=== PATIENT | male | born 1995 | race Caucasian/White ===

== ENCOUNTER 2016-10-15 15:45 | Emergency (ER) | payer SELFPAY ==
[2016-10-15 16:42] VITALS: BMI 22.1
[2016-10-15] MEDS ORDERED: SODIUM CHLORIDE 0.9% 3 ML FLUSH FLUSH PRN (17:48)
[2016-10-15] MEDS ORDERED: HYDROmorphone 1 MG INJECTION IV ONE ×2 (17:48→19:07)
[2016-10-15] MEDS ORDERED: ONDANSETRON HCL 4 MG/2 ML VIAL IV ONE (17:48)
--- NOTE | 2016-10-15 17:52 | EDPRACDOC ---
- General Information Chief Complaint: Generalized Weakness Stated Complaint: GENERALIZED WEAKNESS/VOMITING Time Seen by Provider: 10/15/16 17:43 Information Source: Patient Mode Of Arrival: Car Home Medications: Home Medications No Home Medications 10/25/12 Ondansetron [Zofran Odt] 4 mg PO Q6H #20 tab.rapdis 10/15/16 Oxycodone Immediate Release [Oxycodone Immediate Release (OxyIR)] 5 mg PO Q6H PRN #10 tab 10/15/16 PEG-Electrolytes (Miralax) [Miralax] 17 gm PO DAILY 7 Days 10/15/16 Allergies/Adverse Reactions: Allergies Allergy/AdvReac Type Severity Reaction Status Date / Time acetaminophen [From Tylenol] Allergy Unknown Verified 10/15/16 16:43 cefaclor [From Ceclor] Allergy Unknown/See Verified 10/15/16 16:43 Comments codeine [Codeine] Allergy Unknown/See Verified 10/15/16 16:43 Comments - History of Present Illness Onset: FRIDAY HPI: PT STATES SINCE FRIDAY HE HAS BEEN HAVING RUQ RIGHT SIDE ABD PAIN WITH N/V STATES JUST DONT FEEL GOOD AT ALL. Pain Location: Reports: Epigastric, RUQ, RLQ, Flank Pain Context: Reports: Spontaneous Pain Severity: Moderate Pain Quality: Reports: Aching, Cramping, Sharp Pain Radiation: Reports: Back Modifying Factors: improves with: Position, Movement, Other (PRESSING ON ABDOMEN ) Associated Signs & Symptoms: Reports: Nausea, Vomiting Oral Intake: Decreased Urinary Output: Normal ED Past Medical History - History Reviewed Yes Nurses notes reviewed and agree except as marked Travel Outside of [place] in the Last 3 Months?: No No Past Medical History: Yes Patient has no past medical history - Patient Medical History Psychological History: Denies: Depression - Social Medical History ETOH: None Substance Abuse: None Lives With: Significant Other Lives In: Home EDM Review of Systems - Review of Systems ROS Negative Except as Marked: Yes All systems reviewed and were negative except as marked Constitutional: No Symptoms Reported. negative: Fever, Chills, Weakness, Fatigue, Loss of Appetite Eyes: No Symptoms Reported. negative: Redness, Blurred Vision, Double Vision, Discharge, Pain, Light Sensitive, Photophobia Ears: No Symptoms Reported. negative: Pain, Hearing Loss, Drainage, Ear Pulling Throat: No Symptoms Reported. negative: Pain, Swelling Nose: No Symptoms Reported. negative: Congestion, Bleeding, Discharge, Injection, Swelling, Deformity, Ecchymosis, Tender, Abrasion, Laceration Mouth: No Symptoms Reported. negative: Pain, Drooling Respiratory: No Symptoms Reported. negative: Cough, Brassy Cough, Barky Cough, Shortness of Breath, Wheezing, Hemoptysis Cardiovascular: No Symptoms Reported. negative: Chest Pain, Palpitations, Syncope, Edema, Orthopnea, PND, Skin Mottling, Cyanosis Gastrointestinal: Nausea, Pain, Vomiting. negative: Constipation, Diarrhea, Formula Intolerance, Melena Genitourinary: No Symptoms Reported. negative: Dysuria, Hematuria, Frequency, Discharge, Bleeding, Testicular Pain, Neurological: No Symptoms Reported. negative: Headache, Dizziness, Seizure, Numbness, Weakness, Speech Difficulty, Gait Difficulty Musculoskeletal: No Symptoms Reported. negative: Neck, Chestwall, Ribs, Back, Shoulder, Arm, Elbow, Forearm, Wrist, Hand, Pelvis, Hip, Femur, Knee, Leg, Ankle , Foot Integumentary: No Symptoms Reported. negative: Itching, Rash, Bruising, Wound Allergic/Immunologic: No Symptoms Reported. negative: Hives, Itching Hematologic: No Symptoms Reported. negative: Lymphadenopathy, Easy Bruising, Easy Bleeding Endocrine: No Symptoms Reported. negative: Weight Gain, Weight Loss Psychiatric: No Symptoms Reported. negative: Anxiety, Depression, Hallucinations, Insomnia, Suicidal - Physical Exam Constitutional: Alert (Awake, UNCOMFORTABLE) Oriented to: Time, Person, Place Last recorded Vital Signs: Last Vital Signs Temp 98.3 F 10/15/16 19:02 Pulse 66 10/15/16 19:02 Resp 18 10/15/16 19:02 BP 118/64 10/15/16 19:02 Pulse Ox 99 10/15/16 19:02 Oxygen Pulse Oxygen Saturation 99 O2 Device Room Air Oxygen Flow Rate Fraction of Inspired Oxygen ( FIO2) - HEENT Head: Normal ( normocephalic) Eye Exam: Normal (PERRL, EOMI, Sclera white) Oropharynx: Normal (Pharynx:Moist without exudate,Gums-no swelling) Tympanic Membrane: Normal ENT EAC: Normal TMJ: Normal Nose: No Symptoms Reported (septum midline) Neck: Normal (FROM, trachea at midline) - Respiratory/Cardiovascular Respiratory: Normal - CTA (BBS clear to auscultation without adventitious sounds ) Cardiovascular: Normal (RRR without murmur, gallop or rub) - GI Auscultation: Normal (NABS) Palpation: Normal (Soft,No rebound or guarding, non distended) Tenderness: Moderate, Guarding, RUQ, RLQ, Epigastric Ocasio's Sign: Negative - Bladder: Normal - Musculoskeletal Back: Normal (Non-Tender) Extremities: Normal (Normal tone, Pulses 2+ No cyanosis or edema, FROM) - Integumentary Skin: Normal, Warm, Dry Lymphatics: Normal (no adenopathy) - Neurologic Memory Impaired: Normal Motor Function: Normal (Normal tone, Pulses 2+ No cyanosis or edema, FROM) Cranial Nerve: Normal (CN II-X11 intact sensation, strength 5/5) Cerebellar: Normal Mood Description: Normal Perception: Normal - Differential Diagnosis Appendicitis, Cholecystitis, Cholelithiasis, Colic, Constipation, Pancreatitis, Urolithiasis, Ureterolithiasis - Results 10/15/16 17:09 10/15/16 17:09 WBC 10.1 xk/uL (3.8-10.8) 10/15/16 17:09 RBC 5.19 xM/uL (4.70-6.10) 10/15/16 17:09 Hgb 16.0 g/dL (14.0-18.0) 10/15/16 17:09 Hct 45.2 % (42-52) 10/15/16 17:09 MCV 87 fL (80-94) 10/15/16 17:09 MCH 30.8 pg (27-32) 10/15/16 17:09 MCHC 35.3 g/dl (33-36) 10/15/16 17:09 RDW 13.2 % (11.5-14.5) 10/15/16 17:09 Plt Count 255 xk/uL (130-400) 10/15/16 17:09 MPV 8.7 fL (7.4-10.4) 10/15/16 17:09 Neut % (Auto) 60.8 % (45-76) 10/15/16 17:09 Lymph % (Auto) 28.4 % (17-44) 10/15/16 17:09 Isabela % (Auto) 8.6 % (3-10) 10/15/16 17:09 Eos % (Auto) 1.1 % (0-5) 10/15/16 17:09 Baso % (Auto) 1.1 % (0-2) 10/15/16 17:09 Absolute Neuts (auto) 6.06 xk/uL (1.7-8.2) 10/15/16 17:09 Absolute Lymphs (auto) 2.83 xk/uL (0.65-4.75) 10/15/16 17:09 Sodium 142 mEq/L (137-146) 10/15/16 17:09 Potassium 3.6 mEq/L (3.5-5.1) 10/15/16 17:09 Chloride 101 mEq/L (98-107) 10/15/16 17:09 Carbon Dioxide 29 mMOL/L (22-33) 10/15/16 17:09 Anion Gap 16 mEq/L (8-16) 10/15/16 17:09 BUN 12 MG/DL (9-20) 10/15/16 17:09 Creatinine 0.80 MG/DL (0.66-1.25) 10/15/16 17:09 Estimated GFR (MDRD) > 60 mL/min (>=60) 10/15/16 17:09 Glucose 82 MG/DL (70-99) 10/15/16 17:09 Calculated Osmolality 272 MOs/Kg (270-290) 10/15/16 17:09 Calcium 9.3 MG/DL (8.4-10.2) 10/15/16 17:09 Total Bilirubin 0.7 MG/DL (0.2-1.3) 10/15/16 17:09 AST 26 IU/L (17-59) 10/15/16 17:09 ALT 38 IU/L (21-72) 10/15/16 17:09 Alkaline Phosphatase 54 IU/L (38-126) 10/15/16 17:09 Total Protein 7.7 G/DL (6.3-8.2) 10/15/16 17:09 Albumin 4.7 G/DL (3.5-5.0) 10/15/16 17:09 Lipase 59 U/L (23-300) 10/15/16 17:09 Urine Color Yellow 10/15/16 18:35 Urine Clarity Clear 10/15/16 18:35 Urine pH 5.0 (5.0-8.0) 10/15/16 18:35 Ur Specific Stryker 1.020 (1.003-1.035) 10/15/16 18:35 Urine Protein Neg (NEG/TRACE) 10/15/16 18:35 Urine Glucose (UA) Neg (NEGATIVE) 10/15/16 18:35 Urine Ketones Neg (NEGATIVE) 10/15/16 18:35 Urine Occult Blood Neg (NEG/TRACE) 10/15/16 18:35 Urine Nitrite Neg (NEGATIVE) 10/15/16 18:35 Urine Bilirubin Neg (NEGATIVE) 10/15/16 18:35 Urine Urobilinogen <2.0 MG/DL (0-1) 10/15/16 18:35 Ur Leukocyte Esterase Neg (NEGATIVE) 10/15/16 18:35 Urine RBC 0-2 (0-2) 10/15/16 18:35 Urine WBC 0-2 (0-2) 10/15/16 18:35 Urine Bacteria Few (NEG/FEW) 10/15/16 18:35 Urine Mucus Mod (NEG/OCC) H 10/15/16 18:35 Urine Opiates Screen Neg (NEGATIVE) 10/15/16 18:35 Ur Oxycodone Screen Neg (NEGATIVE) 10/15/16 18:35 Urine Methadone Screen *positive* (NEGATIVE) H 10/15/16 18:35 Ur Barbiturates Screen Neg (NEGATIVE) 10/15/16 18:35 Ur Tricyclics Screen Neg (NEGATIVE) 10/15/16 18:35 Ur Phencyclidine Scrn Neg (NEGATIVE) 10/15/16 18:35 Ur Amphetamines Screen Neg (NEGATIVE) 10/15/16 18:35 U Methamphetamines Scrn Neg (NEGATIVE) 10/15/16 18:35 Urine MDMA Screen Neg (NEGATIVE) 10/15/16 18:35 U Benzodiazepines Scrn Neg (NEGATIVE) 10/15/16 18:35 Urine Cocaine Screen Neg (NEGATIVE) 10/15/16 18:35 Ur THC Screen *positive* (NEGATIVE) H 10/15/16 18:35 Lab Results 10/15/16 10/15/16 10/15/16 18:35 18:35 17:09 WBC 10.1 RBC 5.19 Hgb 16.0 Hct 45.2 MCV 87 MCH 30.8 MCHC 35.3 RDW 13.2 Plt Count 255 MPV 8.7 Neut % (Auto) 60.8 Lymph % (Auto) 28.4 Isabela % (Auto) 8.6 Eos % (Auto) 1.1 Baso % (Auto) 1.1 Absolute Neuts (auto) 6.06 Absolute Lymphs (auto) 2.83 Sodium Potassium Chloride Carbon Dioxide Anion Gap BUN Creatinine Estimated GFR (MDRD) Glucose Calculated Osmolality Calcium Total Bilirubin AST ALT Alkaline Phosphatase Total Protein Albumin Lipase Urine Color Yellow Urine Clarity Clear Urine pH 5.0 Ur Specific Stryker 1.020 Urine Protein Neg Urine Glucose (UA) Neg Urine Ketones Neg Urine Occult Blood Neg Urine Nitrite Neg Urine Bilirubin Neg Urine Urobilinogen <2.0 Ur Leukocyte Esterase Neg Urine RBC 0-2 Urine WBC 0-2 Urine Bacteria Few Urine Mucus Mod H Urine Opiates Screen Neg Ur Oxycodone Screen Neg Urine Methadone Screen *positive* H Ur Barbiturates Screen Neg Ur Tricyclics Screen Neg Ur Phencyclidine Scrn Neg Ur Amphetamines Screen Neg U Methamphetamines Scrn Neg Urine MDMA Screen Neg U Benzodiazepines Scrn Neg Urine Cocaine Screen Neg Ur THC Screen *positive* H 10/15/16 17:09 WBC RBC Hgb Hct MCV MCH MCHC RDW Plt Count MPV Neut % (Auto) Lymph % (Auto) Isabela % (Auto) Eos % (Auto) Baso % (Auto) Absolute Neuts (auto) Absolute Lymphs (auto) Sodium 142 Potassium 3.6 Chloride 101 Carbon Dioxide 29 Anion Gap 16 BUN 12 Creatinine 0.80 Estimated GFR (MDRD) > 60 Glucose 82 Calculated Osmolality 272 Calcium 9.3 Total Bilirubin 0.7 AST 26 ALT 38 Alkaline Phosphatase 54 Total Protein 7.7 Albumin 4.7 Lipase 59 Urine Color Urine Clarity Urine pH Ur Specific Stryker Urine Protein Urine Glucose (UA) Urine Ketones Urine Occult Blood Urine Nitrite Urine Bilirubin Urine Urobilinogen Ur Leukocyte Esterase Urine RBC Urine WBC Urine Bacteria Urine Mucus Urine Opiates Screen Ur Oxycodone Screen Urine Methadone Screen Ur Barbiturates Screen Ur Tricyclics Screen Ur Phencyclidine Scrn Ur Amphetamines Screen U Methamphetamines Scrn Urine MDMA Screen U Benzodiazepines Scrn Urine Cocaine Screen Ur THC Screen - Diagnostic Imaging GBUS Image interpreted by: Radiologist 10/15/16 19:11 IMPRESSION: No cholelithiasis or sonographic evidence for acute cholecystitis. CT ABD/PEL Image interpreted by: Radiologist 10/15/16 19:41 IMPRESSION: Increased stool in rectum. Otherwise negative exam. Decision Time to Discharge: 19:42 - Departure Disposition: Home Condition: Stable Final Diagnosis: Constipation Qualifiers: Constipation type: unspecified constipation type Qualified Code(s): K59.00 - Constipation, unspecified Abdominal pain Qualifiers: Abdominal location: generalized Qualified Code(s): R10.84 - Generalized abdominal pain Instructions: Non-pharmacological Pain Management Therapies for Adults (GEN), Abdominal Pain (ED), Constipation (ED) Education/Counseling Given To: Patient Education/Counseling Given Regarding: Diagnosis, Treatment, Prognosis, Follow Up Referrals: None,No Provider [Primary Care Provider] - One Week Geoff Saavedra MD [Staff Physician] - One Week Prescriptions: Ondansetron [Zofran Odt] 4 mg PO Q6H #20 tab.rapdis Oxycodone Immediate Release [Oxycodone Immediate Release (OxyIR)] 5 mg PO Q6H PRN #10 tab PRN Reason: Pain PEG-Electrolytes (Miralax) [Miralax] 17 gm PO DAILY 7 Days Additional Instructions: YOU MAY NEED HIDA SCAN TO ASSESS FUNCTION OF YOUR GALL BLADDER. RETURN FOR WORSE OR DIFFERENT SYMPTOMS. PLEASE FOLLOW WE DISCUSSED.
[2016-10-15 17:59] LABS: AUTOMATED BASOPHIL 1.1 % (0-2); AUTOMATED EOSINOPHIL 1.1 % (0-5); AUTOMATED LYMPH 28.4 % (17-44); AUTOMATED MONOCYTE 8.6 % (3-10); AUTOMATED NEUTROPHIL 60.8 % (45-76); MPV 8.7 fL (7.4-10.4)
[2016-10-15] MEDS ORDERED: SODIUM CHLORIDE 0.9% 3 ML FLUSH FLUSH SCH (18:00)
[2016-10-15 18:13] LABS: BLOOD UREA NITROGEN 12 MG/DL (9-20); CALCIUM 9.3 MG/DL (8.4-10.2); CALCULATED OSMOLALITY 272 MOs/Kg (270-290); CHLORIDE 101 mEq/L (98-107); GLUCOSE 82 MG/DL (70-99); SODIUM LEVEL 142 mEq/L (137-146); TOTAL PROTEIN 7.7 G/DL (6.3-8.2)
[2016-10-15 18:41] LABS: ALL NEG? NO
[2016-10-15 18:48] LABS: MDMA* NEG (NEGATIVE); METHAMPHETAMINES NEG (NEGATIVE); OXYCODONE NEG (NEGATIVE)
[2016-10-15 18:51] LABS: LEUKOCYTES/URINE NEG (NEGATIVE); NITRITE/URINE NEG (NEGATIVE); RBC/URINE 0-2 (0-2); URINE OCCULT BLOOD NEG (NEG/TRACE); WBC/URINE 0-2 (0-2)
[2016-10-15] MEDS ORDERED: Pharmacy Review for Metformin - IV Contrast Given SCH (19:00)
[2016-10-15 19:02] VITALS: BP 118/64; PULSE 66; TEMP 98.3
--- NOTE | 2016-10-15 19:10 | DIRPT ---
CLINICAL DATA: Patient with right upper quadrant pain, nausea and vomiting for 3 days. EXAM: US ABDOMEN LIMITED - RIGHT UPPER QUADRANT COMPARISON: None. FINDINGS: Gallbladder: No gallstones or wall thickening visualized. No sonographic Ocasio sign noted by psychologist. Common bile duct: Diameter: 3 mm Liver: No focal lesion identified. Within normal limits in parenchymal echogenicity. IMPRESSION: No cholelithiasis or sonographic evidence for acute cholecystitis. Electronically Signed By: Felton Prajapati M.D. On: 10/15/2016 19:07
[2016-10-15] MEDS: NS 1,000 ML IV SCH ×2 (19:29→19:43)
--- NOTE | 2016-10-15 19:39 | DIRPT ---
CLINICAL DATA: RIGHT-side abdominal pain, McBurney's tenderness, nausea, vomiting, RIGHT upper quadrant pain, weakness for 3 days, negative RIGHT upper quadrant ultrasound earlier today EXAM: CT ABDOMEN AND PELVIS WITH CONTRAST TECHNIQUE: Multidetector CT imaging of the abdomen and pelvis was performed using the standard protocol following bolus administration of intravenous contrast. Sagittal and coronal MPR images reconstructed from axial data set. CONTRAST: No oral contrast administered. 100 cc Isovue 370 administered IV. COMPARISON: 01/14/2011 FINDINGS: Lung bases clear. Liver, gallbladder, spleen, pancreas, kidneys, and adrenal glands normal. Normal appendix in RIGHT pelvis. Scattered normal size mesenteric lymph nodes. Increased stool in rectum. Bowel gas pattern otherwise normal for technique. No mass, adenopathy, free air, free fluid, or inflammatory process. Bladder decompressed and ureters grossly unremarkable. Interval increase in size of a large Schmorl's node at L4 with posterior inferior endplate spurring at L4 and a bulging disc narrowing the spinal canal. No hernia. IMPRESSION: Increased stool in rectum. Otherwise negative exam. Electronically Signed By: Manoj Jacobo M.D. On: 10/15/2016 19:36
== END 2016-10-15 20:10 | disposition home or self-care (01) ==
LOC: ED 15:45 → EDMC 20:10
DX: K59.00 Constipation, unspecified (principal); R10.84 Generalized abdominal pain
CPT/HCPCS: 36415; 74177; 76705; 80053; 80307; 81001; 83690; 85025; 96361; 96374; 96375; 96376; 99283; A9698; J1170; J2405